=== PATIENT | female | born 1935 | race Caucasian/White ===

== ENCOUNTER 2016-07-09 06:25 | Emergency (ER) | payer MEDICARE ==
[2016-07-09 06:25] VITALS: BMI 28.3
[2016-07-09 06:37] VITALS: TEMP 98
--- NOTE | 2016-07-09 07:21 | EDPRACDOC ---
- General Information Chief Complaint: Blood Pressure (Problems) Stated Complaint: HYPERTENSION Time Seen by Provider: 07/09/16 07:04 Information Source: Patient, Family Mode Of Arrival: Car Home Medications: Home Medications Carvedilol [Coreg] 50 mg PO BID #60 tablet 11/22/14 CloNIDine (Antihypertensive) [Catapres] 0.1 mg PO TID 11/22/14 Hydralazine HCl 25 mg PO TID #90 tab 06/22/16 Omeprazole 40 mg PO DAILY 07/09/16 Allergies/Adverse Reactions: Allergies Allergy/AdvReac Type Severity Reaction Status Date / Time penicillamine [Penicillamine] Allergy Mild Rash-Genera Verified 07/09/16 06:37 lized orphenadrine citrate Allergy Unknown Verified 07/09/16 06:37 [From Norflex] Penicillins Allergy Rash-Genera Verified 07/09/16 06:37 lized - History of Present Illness Onset: 3-4 days HPI: BLOOD PRESSURE ELEVATED THE PAST FEW DAYS. C/O HEADACHE, NAUSEA FOR 2 WEEKS, SEEN IN ED FOR SAME. TOOK BP MEDS BEFORE COMING IN TODAY. DENIES CP, SOB. INTERMITTENT ABD PAIN. RECENT NORMAL BLOOD WORK. ADJUSTMENTS MADE TO MEDS BY PCP. ALSO HAS SEEN [facility]. NORMAL STRESS. ALL GOOD. ED Past Medical History - History Reviewed Yes Nurses notes reviewed and agree except as marked - Patient Medical History Neurological History: Reports: Cerebrovascular Accident Cardiac History: Reports: Hypertension, Hypercholesterolemia Psychological History: Denies: Depression - Social Medical History Smoking Status: Never smoker EDM Review of Systems - Review of Systems ROS Negative Except as Marked: Yes All systems reviewed and were negative except as marked Constitutional: No Symptoms Reported. negative: Chills Eyes: No Symptoms Reported. negative: Blurred Vision Nose: No Symptoms Reported Mouth: No Symptoms Reported Respiratory: No Symptoms Reported Cardiovascular: No Symptoms Reported Genitourinary: No Symptoms Reported Neurological: Headache Musculoskeletal: No Symptoms Reported Integumentary: No Symptoms Reported Allergic/Immunologic: No Symptoms Reported - Physical Exam Constitutional: Alert (Awake), No apparent distress Oriented to: Time, Person, Place Last recorded Vital Signs: Last Vital Signs Temp 98.0 F 07/09/16 06:34 Pulse 62 07/09/16 06:34 Resp 20 07/09/16 06:34 BP 144/63 07/09/16 06:34 Pulse Ox 95 07/09/16 06:34 Oxygen Pulse Oxygen Saturation 95 O2 Device Room Air Oxygen Flow Rate Fraction of Inspired Oxygen ( FIO2) - HEENT Head: Normal ( normocephalic) Eye Exam: Normal (PERRL, EOMI, Sclera white) Oropharynx: Normal (Pharynx:Moist without exudate,Gums-no swelling) Nose: No Symptoms Reported (septum midline) Neck: Normal (FROM, trachea at midline) - Respiratory/Cardiovascular Respiratory: Normal - CTA (BBS clear to auscultation without adventitious sounds ) Cardiovascular: Normal (RRR without murmur, gallop or rub) - GI Auscultation: Normal (NABS) Palpation: Normal (Soft,No rebound or guarding, non distended) Tenderness: Non tender Huertas's Sign: Negative - Musculoskeletal Back: Normal (Non-Tender) Extremities: Normal (Normal tone, Pulses 2+ No cyanosis or edema, FROM) - Integumentary Skin: Normal, Warm, Dry Lymphatics: Normal (no adenopathy) - Neurologic Memory Impaired: Normal Motor Function: Normal (Normal tone, Pulses 2+ No cyanosis or edema, FROM) Cranial Nerve: Normal (CN II-X11 intact sensation, strength 5/5) Cerebellar: Normal Mood Description: Normal Perception: Normal Decision Time to Discharge: 07:21 - Departure Yes I personally saw and evaluated the patient. Disposition: Home Condition: Stable Final Diagnosis: Chronic hypertension Instructions: Chronic Hypertension (ED) Education/Counseling Given To: Patient, Family Member Education/Counseling Given Regarding: Diagnosis Referrals: [Primary Care Provider] - Call for Appointment
[2016-07-09 07:44] VITALS: BP 145/75; PULSE 85
== END 2016-07-09 07:35 | disposition home or self-care (01) ==
LOC: ED 06:25
DX: I10 Essential (primary) hypertension (principal)
CPT/HCPCS: 99284

== ENCOUNTER 2016-07-30 19:28 | Observation (INO) | payer MEDICARE ==
[2016-07-30 20:47] LABS: AUTOMATED BASOPHIL 0.9 % (0-2); AUTOMATED EOSINOPHIL 2.4 % (0-5); AUTOMATED LYMPH 19.1 % (17-44); AUTOMATED MONOCYTE 7.7 % (3-10); AUTOMATED NEUTROPHIL 69.9 % (45-76); MPV 9.9 fL (7.4-10.4)
[2016-07-30] MEDS ORDERED: LABETALOL 20 MG/4 ML SYRINGE IV ONE (20:50)
--- NOTE | 2016-07-30 20:50 | DIRPT ---
CLINICAL DATA: Shortness of Breath EXAM: PORTABLE CHEST 1 VIEW COMPARISON: 01/13/2016 FINDINGS: Mild cardiomegaly. Lungs are clear. No effusions. No acute bony abnormality. IMPRESSION: Cardiomegaly. No active disease. Electronically Signed By: Ted Randle M.D. On: 07/30/2016 20:47
--- NOTE | 2016-07-30 20:53 | EDPRACDOC ---
- General Information Chief Complaint: Arrhythmia Stated Complaint: HEADACHE, NAUSEA, ABD PAIN ?HIGH BP Time Seen by Provider: 07/30/16 20:24 Information Source: Patient Mode of Arrival: Car Home Medications: Home Medications Carvedilol [Coreg] 50 mg PO BID #60 tablet 11/22/14 CloNIDine (Antihypertensive) [Catapres] 0.1 mg PO TID 11/22/14 Acetaminophen [Tylenol] 325 mg PO Q4-6H PRN 07/30/16 Hydralazine HCl 12.5 mg PO DAILY 07/30/16 Ranitidine HCl 150 mg PO BID 07/30/16 Allergies/Adverse Reactions: Allergies Allergy/AdvReac Type Severity Reaction Status Date / Time penicillamine [Penicillamine] Allergy Mild Rash-Genera Verified 07/30/16 20:08 lized orphenadrine citrate Allergy Unknown Verified 07/30/16 20:08 [From Norflex] Penicillins Allergy Rash-Genera Verified 07/30/16 20:08 lized - History of Present Illness Onset: 1914 HPI: PATIENT PRESENTS C/O EPIGASTRIC PAIN THAT HAS NOW MOVED MIDSTERNAL. NOT ASSOCIATED WITH EXERTION. B/P CONTINUES TO BE OUT OF CONTROL. MILD HEADACHE. FOLLOWS WITH DR. JIMENES. Chest Pain Location: Reports: Substernal Pain Radiation: Reports: None Symptoms Occur: Reports: Suddenly Cardiac Risk Factors: Reports: Family History, Hypertension Prehospital Care: Reports: None Pain Came On: Reports: Suddenly Pain Status: Present Now Pain Description: Reports: Pressure Pain Severity: Mild Pain Worsens With: Reports: Nothing Pain Improves With: Reports: Nothing Associated Signs and Symptoms: Reports: SOB ED Past Medical History - History Reviewed Yes Nurses notes reviewed and agree except as marked Travel Outside of [place] in the Last 3 Months?: No - Patient Medical History Neurological History: Reports: Cerebrovascular Accident Cardiac History: Reports: Hypertension, Hypercholesterolemia Psychological History: Denies: Depression Systemic History: Denies: Cancer Surgical History: Reports: Appendectomy - Social Medical History Smoking Status: Never smoker ETOH: None Substance Abuse: None Lives With: Family Lives In: Home EDM Review of Systems - Review of Systems ROS Negative Except as Marked: Yes All systems reviewed and were negative except as marked Constitutional: No Symptoms Reported. negative: Fever, Chills, Weakness, Fatigue, Loss of Appetite Eyes: No Symptoms Reported. negative: Redness, Blurred Vision, Double Vision, Discharge, Pain, Light Sensitive, Photophobia Ears: No Symptoms Reported. negative: Pain, Hearing Loss, Drainage, Ear Pulling Throat: No Symptoms Reported. negative: Pain, Swelling Nose: No Symptoms Reported. negative: Congestion, Bleeding, Discharge, Injection, Swelling, Deformity, Ecchymosis, Tender, Abrasion, Laceration Mouth: No Symptoms Reported. negative: Pain, Drooling Respiratory: No Symptoms Reported. negative: Cough, Brassy Cough, Barky Cough, Shortness of Breath, Wheezing, Hemoptysis Cardiovascular: Chest Pain. negative: Cyanosis, Edema, Orthopnea, Palpitations , PND, Syncope, Skin Mottling Gastrointestinal: No Symptoms Reported. negative: Pain, Constipation, Nausea, Vomiting, Diarrhea, Melena, Formula Intolerance Genitourinary: No Symptoms Reported. negative: Dysuria, Hematuria, Frequency, Discharge, Bleeding, Testicular Pain, Neurological: No Symptoms Reported. negative: Headache, Dizziness, Seizure, Numbness, Weakness, Speech Difficulty, Gait Difficulty Musculoskeletal: No Symptoms Reported. negative: Neck, Chestwall, Ribs, Back, Shoulder, Arm, Elbow, Forearm, Wrist, Hand, Pelvis, Hip, Femur, Knee, Leg, Ankle , Foot Integumentary: No Symptoms Reported. negative: Itching, Rash, Bruising, Wound Allergic/Immunologic: No Symptoms Reported. negative: Hives, Itching Hematologic: No Symptoms Reported. negative: Lymphadenopathy, Easy Bruising, Easy Bleeding Endocrine: No Symptoms Reported. negative: Weight Gain, Weight Loss Psychiatric: No Symptoms Reported. negative: Anxiety, Depression, Hallucinations, Insomnia, Suicidal - Physical Exam Constitutional: Alert (Awake), No apparent distress Oriented to: Time, Person, Place Last recorded Vital Signs: Last Vital Signs Temp 98.0 F 07/30/16 20:09 Pulse 60 07/30/16 20:31 Resp 20 07/30/16 20:31 BP 216/83 H 07/30/16 20:31 Pulse Ox 100 07/30/16 20:31 Oxygen Pulse Oxygen Saturation 100 O2 Device Oxygen Flow Rate Fraction of Inspired Oxygen ( FIO2) - HEENT Head: Normal ( normocephalic) Eye Exam: Normal (PERRL, EOMI, Sclera white) Oropharynx: Normal (Pharynx:Moist without exudate,Gums-no swelling) Tympanic Membrane: Normal ENT EAC: Normal TMJ: Normal Nose: No Symptoms Reported (septum midline) Neck: Normal (FROM, trachea at midline) - Respiratory/Cardiovascular Respiratory: Normal - CTA (BBS clear to auscultation without adventitious sounds ) Cardiovascular: Normal (RRR without murmur, gallop or rub) - GI Auscultation: Normal (NABS) Palpation: Normal (Soft,No rebound or guarding, non distended) Tenderness: Non tender Huertas's Sign: Negative - Musculoskeletal Back: Normal (Non-Tender) Extremities: Normal (Normal tone, Pulses 2+ No cyanosis or edema, FROM) - Integumentary Skin: Normal, Warm, Dry Lymphatics: Normal (no adenopathy) - Neurologic Memory Impaired: Normal Motor Function: Normal (Normal tone, Pulses 2+ No cyanosis or edema, FROM) Cranial Nerve: Normal (CN II-X11 intact sensation, strength 5/5) Cerebellar: Normal Mood Description: Normal Perception: Normal - Action ASA given in the ED: Yes - Results 07/30/16 20:40 07/30/16 20:40 WBC 6.9 xk/uL (3.8-10.8) 07/30/16 20:40 RBC 3.92 xM/uL (4.20-5.40) L 07/30/16 20:40 Hgb 11.9 g/dL (12.0-16.0) L 07/30/16 20:40 Hct 34.5 % (36-47) L 07/30/16 20:40 MCV 88 fL (81-99) 07/30/16 20:40 MCH 30.3 pg (27-32) 07/30/16 20:40 MCHC 34.3 g/dl (33-36) 07/30/16 20:40 RDW 13.0 % (11.5-14.5) 07/30/16 20:40 Plt Count 138 xk/uL (130-400) 07/30/16 20:40 MPV 9.9 fL (7.4-10.4) 07/30/16 20:40 Neut % (Auto) 69.9 % (45-76) 07/30/16 20:40 Lymph % (Auto) 19.1 % (17-44) 07/30/16 20:40 [place] % (Auto) 7.7 % (3-10) 07/30/16 20:40 Eos % (Auto) 2.4 % (0-5) 07/30/16 20:40 Baso % (Auto) 0.9 % (0-2) 07/30/16 20:40 Absolute Neuts (auto) 4.76 xk/uL (1.7-8.2) 07/30/16 20:40 Absolute Lymphs (auto) 1.31 xk/uL (0.65-4.75) 07/30/16 20:40 Lab Results 07/30/16 20:40 WBC 6.9 RBC 3.92 L Hgb 11.9 L Hct 34.5 L MCV 88 MCH 30.3 MCHC 34.3 RDW 13.0 Plt Count 138 MPV 9.9 Neut % (Auto) 69.9 Lymph % (Auto) 19.1 [place] % (Auto) 7.7 Eos % (Auto) 2.4 Baso % (Auto) 0.9 Absolute Neuts (auto) 4.76 Absolute Lymphs (auto) 1.31 Laboratory Results - last 24 hr 07/30/16 20:40 WBC 6.9 RBC 3.92 L Hgb 11.9 L Hct 34.5 L MCV 88 MCH 30.3 MCHC 34.3 RDW 13.0 Plt Count 138 MPV 9.9 Neut % (Auto) 69.9 Lymph % (Auto) 19.1 [place] % (Auto) 7.7 Eos % (Auto) 2.4 Baso % (Auto) 0.9 Absolute Neuts (auto) 4.76 Absolute Lymphs (auto) 1.31 Laboratory Results 07/30/16 20:40 - EKG EKG #1 EKG Time: 20:18 -: Yes EKG interpreted by me Rate: bpm: 59 Morven: LAD Rhythm: SB Block: IVCD Hypertrophy: LVH ST: Normal ED Critical Care Note - Critical Care Note Total Time (mins): 30 - Departure Yes I personally saw and evaluated the patient. Disposition: Admit IP To This Hospital Condition: Fair Final Diagnosis: Hypertensive emergency, Chest pain at rest Instructions: Chest Pain (ED), Chronic Hypertension (ED) Education/Counseling Given To: Patient Education/Counseling Given Regarding: Diagnosis, Treatment, Prognosis Referrals: None,No Provider [Primary Care Provider] - One Week Prescriptions: No Action CloNIDine (Antihypertensive) [Catapres] 0.1 mg PO TID Carvedilol [Coreg] 50 mg PO BID #60 tablet Ranitidine HCl 150 mg PO BID Hydralazine HCl 12.5 mg PO DAILY Acetaminophen [Tylenol] 325 mg PO Q4-6H PRN PRN Reason: Pain Decision to Admit Time: 21:27 Decision to admit date: 07/30/16 Decision to admit: from ED - Physician Consulted Hospitalist Time Called: 21:27 Provider Called: Gary Pires Time Mend Worker Returned Call: 21:28
[2016-07-30] MEDS ORDERED: ASPIRIN (CHEWABLE) 81 MG TAB PO ONE (20:54)
[2016-07-30 20:56] LABS: BLOOD UREA NITROGEN 17 MG/DL (7-17); CALCIUM 9.2 MG/DL (8.4-10.2); CALCULATED OSMOLALITY 253 MOs/Kg (270-290); CHLORIDE 93 mEq/L (98-107); GLUCOSE 105 MG/DL (70-99); SODIUM LEVEL 130 mEq/L (137-146)
[2016-07-30 21:00] LABS: PARTIAL THROMB. TIME 23.5 SEC (22-35); PT-INR 1.1
[2016-07-30] MEDS ORDERED: ENALAPRILAT 1.25 MG/ML VIAL IV ONE (21:29)
--- NOTE | 2016-07-30 23:38 | HISTPHYS ---
- Chief Complaint chest pain, high blood pressure - History of Present Illness [facility] HPI: The patient is an 81 yo woman who presents with acute worsening of her blood pressure and chest pain. She checked her blood pressure at home and it was 220 systolic. Onset: today. Duration: intermittent. Location: substernal. Radiation: to back. Character: Pressure. 01/10. Alleviated by: Nothing. Exacerbated by: Nothing. Associated Symptoms: Headache. Mild shortness of breath. No diaphoresis. Generalized weakness. Nausea. Epigastric abdominal pain but has mostly resolved. Palpitations. Treatments: none at home except usual medications. She reports she has had difficulty controlling her blood pressure and that she was scheduled to see Dr. oJy and have further evaluation of her heart. - Medical History Cardiac History: Reports: Hypertension, Hypercholesterolemia Respiratory History: Denies: Pulmonary Embolism (but has history of DVT) GI/ History: Reports: Gastroesophageal Reflux Neurological History: Reports: Cerebrovascular Accident - Surgical History Reports: Appendectomy, Hysterectomy - Medictions/Allergies Allergies penicillamine [Penicillamine] Allergy (Mild, Verified 07/30/16 20:08) Rash-Generalized orphenadrine citrate [From Norflex] Allergy (Verified 07/30/16 20:08) Unknown Penicillins Allergy (Verified 07/30/16 20:08) Rash-Generalized Current Medication List: Reviewed Home Medications Carvedilol [Coreg] 50 mg PO BID #60 tablet 11/22/14 CloNIDine (Antihypertensive) [Catapres] 0.1 mg PO TID 11/22/14 Acetaminophen [Tylenol] 325 mg PO Q4-6H PRN 07/30/16 Hydralazine HCl 12.5 mg PO DAILY 07/30/16 Ranitidine HCl 150 mg PO BID 07/30/16 - Family History Reports: Hypertension, Diabetes, Cancer - Social History Smoking Status: Former smoker (quit 2010) Social History: Denies: Alcohol Use, Substance Use Disorder - Review of Systems GENERAL: No Fever, chills, or diaphoresis. Positive for fatigue/malaise. HEENT: No ear pain or discharge. No nasal discharge or bleeding. No throat pain or swelling. No eye pain or eye redness. RESPIRATORY: No cough, wheezing, or shortness of breath. CARDIOVASCULAR: Chest pain and palpitations. GI: Epigastric abdominal pain that has mostly resolved. Nausea. No vomiting, diarrhea, constipation, or bloody stool. NEUROLOGICAL: Headache but no focal weakness. INTEGUMENT: no rashes, itching, or lesions. LYMPHATIC SYSTEM: no lymph node swelling or pain. MUSCULOSKELETAL: no new pain or joint swelling. GENITOURINARY: No dysuria or hematuria. ENDOCRINE: No polyuria or polydipsia. HEME: No chronic anemia, bleeding, or easy bruising. - Physical Exam Vital Signs: Initial Vitals Temperature 98.0 F 07/30/16 20:09 Pulse Rate 65 07/30/16 20:09 Respiratory Rate 20 07/30/16 20:09 Blood Pressure 177/74 07/30/16 20:09 Pulse Oxygen Saturation 97 07/30/16 20:09 Vital Signs - 24 hr 07/30/16 07/30/16 07/30/16 20:09 20:31 21:02 Temperature 98.0 F Pulse Rate 65 60 63 Respiratory 20 20 18 Rate Blood Pressure 177/74 216/83 H 197/81 H Pulse Oxygen 97 100 100 Saturation 07/30/16 07/30/16 07/30/16 21:34 21:37 21:55 Temperature Pulse Rate 55 L 54 L 55 L Respiratory 18 18 18 Rate Blood Pressure 177/77 177/77 157/71 Pulse Oxygen 97 97 97 Saturation 07/30/16 07/30/16 22:25 22:55 Temperature Pulse Rate 55 L 55 L Respiratory 18 18 Rate Blood Pressure 165/73 164/70 Pulse Oxygen 97 95 Saturation Weight: 65.7 kg Height: 5'2" BMI: 26.5 - Other Exam Other Exam Findings: GENERAL: Ill-appearing, well nourished, in acute distress. HEENT: Normocephalic, atraumatic; pupils equal and round. Nares patent, without discharge or bleeding. No oropharyngeal lesions or erythema. Mucous membranes are dry. NECK: is supple, no masses, trachea midline. RESPIRATORY: Clear to auscultation bilaterally. Chest wall movements are symmetric. No use of accessory muscles to breathe. No wheezing, rales, rhonchi. CARDIOVASCULAR: Normal S1, S2. Murmur 2/6 systolic. No rubs, or gallops. PMI non -displaced. Carotids: no carotid bruits. No bradycardia or tachycardia. DP pulses 2+ bilaterally. GI: soft, non-distended, normal active bowel sounds. No hepatosplenomegaly. Mild epigastric tenderness. INTEGUMENT: Clean, dry, and intact. No rashes. No lesions. MUSCULOSKELETAL: Moving all extremities. No cyanosis. No clubbing. Edema: trace lower extremity edema bilaterally. NEUROLOGICAL: Cranial nerves 2-12 grossly intact. Motor 4/5 throughout. Reflexes : 2+ bilaterally. Babinski: toes downgoing bilaterally. Intact Finger to nose. Sensory grossly intact to light touch. Intact rapid alternating movements bilaterally. No pronator drift. PSYCHIATRIC: Fully oriented. Normal and appropriate affect. LYMPHATIC: No cervical lymphadenopathy. No supraclavicular lymphadenopathy. - Lab Results Laboratory Results - last 24 hr 07/30/16 07/30/16 07/30/16 20:40 20:40 20:40 WBC 6.9 RBC 3.92 L Hgb 11.9 L Hct 34.5 L MCV 88 MCH 30.3 MCHC 34.3 RDW 13.0 Plt Count 138 MPV 9.9 Neut % (Auto) 69.9 Lymph % (Auto) 19.1 [place] % (Auto) 7.7 Eos % (Auto) 2.4 Baso % (Auto) 0.9 Absolute Neuts (auto) 4.76 Absolute Lymphs (auto) 1.31 PT 11.2 INR 1.1 APTT 23.5 Sodium 130 L Potassium 4.1 Chloride 93 L Carbon Dioxide 29 Anion Gap 12 BUN 17 Creatinine 0.80 Estimated GFR (MDRD) > 60 Glucose 105 H Calculated Osmolality 253 L Calcium 9.2 Corrected Calcium Total Bilirubin 0.6 AST 25 ALT 30 Alkaline Phosphatase 54 L Troponin I < 0.01 Total Protein 7.0 Albumin 4.1 Triglycerides Cholesterol LDL Cholesterol, Calc VLDL Cholesterol, Calc HDL Cholesterol Cholesterol/HDL Ratio Lipase TSH 07/30/16 07/30/16 07/30/16 20:40 23:27 23:27 WBC RBC Hgb Hct MCV MCH MCHC RDW Plt Count MPV Neut % (Auto) Lymph % (Auto) Wells % (Auto) Eos % (Auto) Baso % (Auto) Absolute Neuts (auto) Absolute Lymphs (auto) PT INR APTT Sodium Potassium Chloride Carbon Dioxide Anion Gap BUN Creatinine Estimated GFR (MDRD) Glucose Calculated Osmolality Calcium Corrected Calcium Total Bilirubin AST ALT Alkaline Phosphatase Troponin I < 0.01 Total Protein Albumin Triglycerides Cholesterol LDL Cholesterol, Calc VLDL Cholesterol, Calc HDL Cholesterol Cholesterol/HDL Ratio Lipase 300 TSH 1.75 - Diagnostic Findings EK bpm. Sinus bradycardia. Left axis deviation. Incomplete right bundle branch block. Nonspecific ST abnormality. ST depression in leads 3, AVF, and V6. ST elevation in lead V2 and 1. Reviewed EKG personally. Chest x-ray, viewed personally: EXAM: PORTABLE CHEST 1 VIEW COMPARISON: 01/13/2016 FINDINGS: Mild cardiomegaly. Lungs are clear. No effusions. No acute bony abnormality. IMPRESSION: Cardiomegaly. No active disease. - Assessment (1) Hypertensive emergency I16.1 - HYPERTENSIVE EMERGENCY Acute Present on Admission: Yes Patient has hypertension that is difficult to treat. Her blood pressure at home was much higher than usual and so she did come to the emergency department. Plan: Continue home medications but will need to add additional medications. May end up needing an IV gtt to control pressure. 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 (2) Chest pain R07.9 - CHEST PAIN, UNSPECIFIED Acute Present on Admission: Yes Qualifiers: Chest pain type: C Ischemic chest pain type: I Rule out myocardial infarction. Plan: Obtain cardiac enzymes x 3. Place patient on telemetry. Give patient oxygen, aspirin. Give nitroglycerin, and morphine as needed for chest pain. Give statin. Stress test has been ordered for the morning. Patient has been advised, if the stress test is negative, to follow up with the primary care provider for evaluation of other potential causes of the chest pain. (3) Acute electrocardiogram changes R94.31 - ABNORMAL ELECTROCARDIOGRAM [ECG] [EKG] Acute Present on Admission: Yes Noted. Plan: Continue cardiac workup. Cardiology consult. 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 Plan: Monitor. IV morphine prn. Control blood pressure. Case Care Discussed with: Patient, Family, Nursing Staff Total Time: 60 min
[2016-07-30] MEDS ORDERED: ATORVASTATIN 40 MG TAB PO ONE (23:40)
[2016-07-30] MEDS ORDERED: NITROGLYCERINE 0.4 MG TAB SL PRN (23:41)
[2016-07-30] MEDS ORDERED: MORPHINE 2 MG/ML INJECTION IV PRN (23:41)
[2016-07-30] MEDS ORDERED: Aluminum;Magnesium;Simethicone 30 ML UDC PO PRN (23:42)
[2016-07-30] MEDS ORDERED: ACETAMINOPHEN 325 MG SUPP PR PRN (23:42)
[2016-07-30] MEDS ORDERED: ONDANSETRON HCL 4 MG/2 ML VIAL IV PRN (23:42)
[2016-07-30] MEDS ORDERED: BENZONATATE 100 MG PERLES PO PRN (23:42)
[2016-07-30] MEDS ORDERED: PROMETHAZINE 25 MG/ML VIAL IV PRN (23:42)
[2016-07-30] MEDS ORDERED: SENNA CONCENTRATE TAB PO PRN (23:42)
[2016-07-30] MEDS ORDERED: ACETAMINOPHEN 325 MG/TAB TABLET PO PRN (23:42)
[2016-07-30] MEDS ORDERED: Docusate Sodium 100 MG CAP PO PRN (23:42)
[2016-07-30] MEDS ORDERED: GUAIFEN 100 MG-DEXTROMETH 10 MG PER 5 ML PO PRN (23:42)
[2016-07-30] MEDS ORDERED: BISACODYL 5 MG TAB PO PRN (23:42)
[2016-07-30] MEDS ORDERED: SIMETHICONE 80 MG TAB PO PRN (23:42)
[2016-07-30] MEDS ORDERED: TEMAZEPAM 15 MG CAP PO PRN (23:42)
[2016-07-30] MEDS ORDERED: Pharmacy Order Set Alert SCH (23:45)
[2016-07-30] MEDS ORDERED: RANITIDINE 150 MG TAB PO SCH ×2 (23:45)
[2016-07-30] MEDS ORDERED: ENOXAPARIN 40 MG/0.4 ML PFS SQ SCH (23:45)
[2016-07-31 00:37] VITALS: BMI 26.4
[2016-07-31] MEDS: CARVEDILOL 25 MG TABLET PO SCH ×2 (00:37→11:21)
[2016-07-31] MEDS ORDERED: Vaccine Screening Complete SCH (01:00)
[2016-07-31 03:33] LABS: MPV 11.4 fL (7.4-10.4)
[2016-07-31 03:43] LABS: BLOOD UREA NITROGEN 16 MG/DL (7-17); CALC CORRECTED 9.4 MG/DL (8.4-10.2); CALCIUM 8.9 MG/DL (8.4-10.2); CALCULATED OSMOLALITY 252 MOs/Kg (270-290); CHLORIDE 94 mEq/L (98-107); GLUCOSE 104 MG/DL (70-99); SODIUM LEVEL 130 mEq/L (137-146); TOTAL PROTEIN 5.9 G/DL (6.3-8.2)
[2016-07-31] MEDS ORDERED: REGADENOSON 0.4 MG/5 ML SYRINGE IV ONE (08:00)
[2016-07-31] MEDS ORDERED: ASPIRIN 325 MG TAB PO SCH (08:00)
[2016-07-31] MEDS ORDERED: SODIUM CHLORIDE 0.9% 10 ML FLUSH FLUSH ONE (08:00)
[2016-07-31] MEDS ORDERED: hydrALAZINE 25 MG TAB PO SCH (09:00)
[2016-07-31] MEDS ORDERED: SESTAMIBI 8 MCI V IV ONE (10:00)
--- NOTE | 2016-07-31 10:18 | CAPUEKG ---
[place], [place] Test Date: 2016-07-31 Pat Name: MEDARDO FELDER Department: Room: 444 Gender: Female National Van Owner Operator: : Requested By: Order Number: Reading MD: Larry Petersen MD Measurements Intervals [place] Rate: 58 P: 39 CA: 142 QRS: -26 QRSD: 100 T: -4 QT: 456 QTc: 447 Interpretive Statements Sinus bradycardia Moderate voltage criteria for LVH, may be normal variant Borderline ECG Electronically Signed On 07-31-16 10:18:26 EST by Larry Petersen MD [id number] [id number]
--- NOTE | 2016-07-31 11:12 | PCM.CARDCO ---
Consultation Date: 07/31/16 Requesting Physician: Gary Pires Credit Assessment Analyst: Larry Petersen Consult Reason: Chest Pain - History of Present Illness Patient is an 81 years old woman originally from [place] she presented to the hospital because of high blood pressure that she checked by measure her blood pressure as well as chest pain. She has difficulty specifically described her pain it look like it is located on the left side of chest not related to exertion can last up to couple hours. Taking deep breath coughing does not make any with situation worse. Her ability to exercise is fair. Denies having any dizziness or passing out. She has been having problem with high blood pressure for many years. Chief Complaint: chest pain, high blood pressure - Past Medical and Surgical History Cardiac History: Reports: Hypertension, Hypercholesterolemia Respiratory History: Denies: Pulmonary Embolism (but has history of DVT) GI/ History: Reports: Gastroesophageal Reflux Systemic History: Denies: Cancer, Anemia Psychological History: Denies: Depression, Alcoholism, Substance Use Disorder Neurological History: Reports: Cerebrovascular Accident Past Surgical History: Reports: Appendectomy, Hysterectomy Allergies penicillamine [Penicillamine] Allergy (Mild, Verified 07/30/16 20:08) Rash-Generalized orphenadrine citrate [From Norflex] Allergy (Verified 07/30/16 20:08) Unknown Penicillins Allergy (Verified 07/30/16 20:08) Rash-Generalized Home Medications Carvedilol [Coreg] 50 mg PO BID #60 tablet 11/22/14 CloNIDine (Antihypertensive) [Catapres] 0.1 mg PO TID 11/22/14 Acetaminophen [Tylenol] 325 mg PO Q4-6H PRN 07/30/16 Hydralazine HCl 12.5 mg PO DAILY 07/30/16 Ranitidine HCl 150 mg PO BID 07/30/16 - Social History Travel Outside of [place] in the Last 3 Months?: No Smoking Status: Former smoker (quit 2010) Social History: Denies: Alcohol Use, Substance Use Disorder - Family History Reports: Hypertension, Diabetes, Cancer. Denies: Stroke, Cardiac Disorders - Review of Systems Constitutional: No Symptoms Reported. negative: Fever, Chills, Weakness, Fatigue, Loss of Appetite - Physical Exam Constitutional: Alert (Awake), No apparent distress Oriented to: Time, Person, Place Exam: Last Vital Signs Temp 98 F 07/31/16 07:42 Pulse 55 L 07/31/16 08:00 Resp 18 07/31/16 07:42 BP 148/61 07/31/16 07:42 Pulse Ox 97 07/31/16 07:42 Intake & Output 07/30/16 07/31/16 07/31/16 23:59 07:59 15:59 Intake Total 340 Output Total 1000 Balance -660 Patient's weight 65.68 kg - HEENT Head: Normal ( normocephalic) Eye: Normal (PERRL, EOMI, Sclera white) Oropharynx: Normal (Pharynx:Moist without exudate,Gums-no swelling) Tympanic Membrane: Normal ENT EAC: Normal TMJ: Normal Nose: No Symptoms Reported (septum midline) - Respiratory/Cardiovascular Respiratory: Normal - CTA (BBS clear to auscultation without adventitious sounds ) - GI Auscultation: Normal (NABS) Palpation: Normal (Soft,No rebound or guarding, non distended) Tenderness: Non tender - Musculoskeletal Back: Normal (Non-Tender) Extremities: Normal (Normal tone, Pulses 2+ No cyanosis or edema, FROM) - Integumentary Skin: Normal, Warm, Dry Lymphatics: Normal (no adenopathy) - Neurologic Memory Impaired: Normal Cerebellar: Normal Mood Description: Normal Perception: Normal - Other Exam Other Exam Findings: Laboratory Tests 07/30/16 07/30/16 07/30/16 20:40 20:40 20:40 WBC 6.9 RBC 3.92 L Hgb 11.9 L Hct 34.5 L MCV 88 MCH 30.3 MCHC 34.3 RDW 13.0 Plt Count 138 MPV 9.9 Neut % (Auto) 69.9 Lymph % (Auto) 19.1 Tompkins % (Auto) 7.7 Eos % (Auto) 2.4 Baso % (Auto) 0.9 Absolute Neuts (auto) 4.76 Absolute Lymphs (auto) 1.31 PT 11.2 INR 1.1 APTT 23.5 Sodium 130 L Potassium 4.1 Chloride 93 L Carbon Dioxide 29 Anion Gap 12 BUN 17 Creatinine 0.80 Estimated GFR (MDRD) > 60 Glucose 105 H Calculated Osmolality 253 L Calcium 9.2 Corrected Calcium Total Bilirubin 0.6 AST 25 ALT 30 Alkaline Phosphatase 54 L Troponin I < 0.01 Total Protein 7.0 Albumin 4.1 Triglycerides Cholesterol LDL Cholesterol, Calc VLDL Cholesterol, Calc HDL Cholesterol Cholesterol/HDL Ratio Lipase TSH 07/30/16 07/30/16 07/30/16 20:40 23:27 23:27 WBC RBC Hgb Hct MCV MCH MCHC RDW Plt Count MPV Neut % (Auto) Lymph % (Auto) Tompkins % (Auto) Eos % (Auto) Baso % (Auto) Absolute Neuts (auto) Absolute Lymphs (auto) PT INR APTT Sodium Potassium Chloride Carbon Dioxide Anion Gap BUN Creatinine Estimated GFR (MDRD) Glucose Calculated Osmolality Calcium Corrected Calcium Total Bilirubin AST ALT Alkaline Phosphatase Troponin I < 0.01 Total Protein Albumin Triglycerides Cholesterol LDL Cholesterol, Calc VLDL Cholesterol, Calc HDL Cholesterol Cholesterol/HDL Ratio Lipase 300 TSH 1.75 07/31/16 07/31/16 07/31/16 02:30 02:30 02:30 WBC 5.3 RBC 3.63 L Hgb 11.0 L Hct 31.9 L MCV 88 MCH 30.4 MCHC 34.6 RDW 13.2 Plt Count 123 L MPV 11.4 H Neut % (Auto) Lymph % (Auto) Tompkins % (Auto) Eos % (Auto) Baso % (Auto) Absolute Neuts (auto) Absolute Lymphs (auto) PT INR APTT Sodium 130 L Potassium 3.6 Chloride 94 L Carbon Dioxide 28 Anion Gap 12 BUN 16 Creatinine 0.80 Estimated GFR (MDRD) > 60 Glucose 104 H Calculated Osmolality 252 L Calcium 8.9 Corrected Calcium 9.4 Total Bilirubin 0.5 AST 20 ALT 27 Alkaline Phosphatase 51 L Troponin I < 0.01 Total Protein 5.9 L Albumin 3.5 Triglycerides 125 Cholesterol 137 LDL Cholesterol, Calc 74.0 VLDL Cholesterol, Calc 25.0 HDL Cholesterol 38.0 L Cholesterol/HDL Ratio 3.6 Lipase TSH - Lab Results Laboratory Tests 07/30/16 07/30/16 07/30/16 20:40 20:40 20:40 WBC 6.9 RBC 3.92 L Hgb 11.9 L Hct 34.5 L MCV 88 MCH 30.3 MCHC 34.3 RDW 13.0 Plt Count 138 MPV 9.9 Neut % (Auto) 69.9 Lymph % (Auto) 19.1 Tompkins % (Auto) 7.7 Eos % (Auto) 2.4 Baso % (Auto) 0.9 Absolute Neuts (auto) 4.76 Absolute Lymphs (auto) 1.31 PT 11.2 INR 1.1 APTT 23.5 Sodium 130 L Potassium 4.1 Chloride 93 L Carbon Dioxide 29 Anion Gap 12 BUN 17 Creatinine 0.80 Estimated GFR (MDRD) > 60 Glucose 105 H Calculated Osmolality 253 L Calcium 9.2 Corrected Calcium Total Bilirubin 0.6 AST 25 ALT 30 Alkaline Phosphatase 54 L Troponin I < 0.01 Total Protein 7.0 Albumin 4.1 Triglycerides Cholesterol LDL Cholesterol, Calc VLDL Cholesterol, Calc HDL Cholesterol Cholesterol/HDL Ratio Lipase TSH 07/30/16 07/30/16 07/30/16 20:40 23:27 23:27 WBC RBC Hgb Hct MCV MCH MCHC RDW Plt Count MPV Neut % (Auto) Lymph % (Auto) Tompkins % (Auto) Eos % (Auto) Baso % (Auto) Absolute Neuts (auto) Absolute Lymphs (auto) PT INR APTT Sodium Potassium Chloride Carbon Dioxide Anion Gap BUN Creatinine Estimated GFR (MDRD) Glucose Calculated Osmolality Calcium Corrected Calcium Total Bilirubin AST ALT Alkaline Phosphatase Troponin I < 0.01 Total Protein Albumin Triglycerides Cholesterol LDL Cholesterol, Calc VLDL Cholesterol, Calc HDL Cholesterol Cholesterol/HDL Ratio Lipase 300 TSH 1.75 07/31/16 07/31/16 07/31/16 02:30 02:30 02:30 WBC 5.3 RBC 3.63 L Hgb 11.0 L Hct 31.9 L MCV 88 MCH 30.4 MCHC 34.6 RDW 13.2 Plt Count 123 L MPV 11.4 H Neut % (Auto) Lymph % (Auto) Tompkins % (Auto) Eos % (Auto) Baso % (Auto) Absolute Neuts (auto) Absolute Lymphs (auto) PT INR APTT Sodium 130 L Potassium 3.6 Chloride 94 L Carbon Dioxide 28 Anion Gap 12 BUN 16 Creatinine 0.80 Estimated GFR (MDRD) > 60 Glucose 104 H Calculated Osmolality 252 L Calcium 8.9 Corrected Calcium 9.4 Total Bilirubin 0.5 AST 20 ALT 27 Alkaline Phosphatase 51 L Troponin I < 0.01 Total Protein 5.9 L Albumin 3.5 Triglycerides 125 Cholesterol 137 LDL Cholesterol, Calc 74.0 VLDL Cholesterol, Calc 25.0 HDL Cholesterol 38.0 L Cholesterol/HDL Ratio 3.6 Lipase TSH - Assessment/Plan (1) Chest pain R07.9 - CHEST PAIN, UNSPECIFIED Acute Present on Admission: Yes C I Comment: So far biochemical markers are normal. She is scheduled to have a stress test today will wait for results of those tests. (2) Essential hypertension I10 - ESSENTIAL (PRIMARY) HYPERTENSION Acute Comment: Will cut down her carvedilol. Will add ARB to control blood pressure better. (3) Dyslipidemia E78.5 - HYPERLIPIDEMIA, UNSPECIFIED Acute Comment: She is on atorvastatin her cholesterol is at target. Will continue present management.
--- NOTE | 2016-07-31 11:29 | CAPUECHO ---
INDICATION: CHEST PAIN / HYPERTENSION HEIGHT: 157.5 cm (5 ft 2.0 in) WEIGHT: 65.3 kg (144.0 lbs) BP: 130/54 BSA: 1.52842 m MEASUREMENTS 2D RVIDd: 2.7 cm IVSd: 1.2 cm LVIDd: 3.9 cm LVPWd: 1.2 cm LVIDs: 2.8 cm EF(Teich): 54.25 % LA Diam: 4.7 cm EF Biplane: 59.13 % LAESV MOD A4C: 74.9 ml LAESV MOD A2C: 81.6* ml LAESV Index (A-L): 50.77 ml/m DOPPLER MV E Jose: 0.84 m/s MV A Jose: 1.04 m/s MV PHT: 63.58 ms MVA By PHT: 3.46 cm AV Vmax: 1.37 m/s TR Vmax: 2.67 m/s TR maxP mmHg RVSP: 38.48 mmHg FINDINGS ------- Procedure:2D images, m-mode, color and spectral Doppler were obtained and reviewed. ECG rhythm:Sinus rhythm. Study quality:This was a technically adequate study. Left Ventricle:The left ventricular size is normal. There is mild concentric left ventricular hype rtrophy. Overall left ventricular systolic function is normal with, an EF between 60 - 65 %. The diastolic filling pattern indicates impaired relaxation. Right Ventricle:The right ventricle is normal in size and function. Left Atrium:The left atrium is normal in size. The left atrium is moderately dilated. Right Atrium:The right atrium is normal in size and function. Aortic Valve:The aortic valve is trileaflet and appears structurally normal. There is mild aortic valve sclerosis. There is mild aortic regurgitation. Mitral Valve:Normal appearing mitral valve. Mild mitral regurgitation is present. Tricuspid Valve:The tricuspid valve appears structurally normal. Mild tricuspid regurgitation pres ent. The right ventricular systolic pressure, as measured by Doppler, is 38 mmhg. Pulmonic Valve:The pulmonic valve is normal. Trace/mild (physiologic) pulmonic regurgitation. Aorta:The aortic root, ascending aorta and aortic arch appear normal. IVC:Normal inferior vena cava with normal inspiratory collapse. Pericardium:There is no pericardial effusion. CONCLUSIONS 1. Overall left ventricular systolic function is normal with, an EF between 60 - 65 %. 2. The diastolic filling pattern indicates impaired relaxation. 3. The left atrium is moderately dilated. 4. There is mild aortic regurgitation. 5. Mild mitral regurgitation is present. 6. Mild tricuspid regurgitation present. 7. The right ventricular systolic pressure, as measured by Doppler, is 38 mmhg. Electronically Signed By: Larry Petersen MD -- Electronically Signed On: 11:29:27
[2016-07-31] MEDS ORDERED: LOSARTAN POTASSIUM 25 MG TAB PO SCH (12:00)
--- NOTE | 2016-07-31 12:43 | PCM.STRESS ---
Nuclear stress test (Lexiscan): Indication for procedure: Chest pain. Patient was brought to the stress test room in a fasting state. IV was already inserted. The patient got connected to the monitoring engineer. Blood pressure was monitored as well as pulse oximetry. Lexiscan was given during in usual fashion. That was followed by injection of radioisotope. Then patient was monitored for about 5 min. Resting heart rate was 52 beats/ min. Resting blood pressure was 144/72 mm of mercury. Resting EKG showed normal sinus rhythm, normal P interval, left ventricle hypertrophy, ST segment changes secondary to LVH. EKG during the infusion of Lexiscan and shortly after showed no diagnostic ST-T segment changes. Symptoms noted during the infusion and after include shoulder and back as well as hip pain.. Nuclear assessment: Resting imaging showed minimal defect involving apical portion of the anterior wall. Stress imaging showed minimal defect involving apical portion of the anterior wall. Gated imaging revealed normal contractility in all segments. The ejection fraction was 64%. Conclusions: 1. No ischemia seen on this scan. 2. Normal gated images. 3. Normal ejection fraction calculated to be of 63%. Fixed defect involving apical portion of the anterior wall is probably related to breast attenuation..
[2016-07-31 13:07] VITALS: BP 180/88; PULSE 60; TEMP 97.9
--- NOTE | 2016-07-31 13:27 | PCM.DCS92 ---
- Final/Secondary Discharge Diagnosis (1) Chest pain Acute R07.9 - CHEST PAIN, UNSPECIFIED Present on Admission: Yes other chest pain I R07.89 - Other chest pain; R07.8 - Other chest pain Comment: Stress test negative for ischemia. Control BP, follow up with pcp (2) Essential hypertension Acute I10 - ESSENTIAL (PRIMARY) HYPERTENSION Present on Admission: Yes Comment: Blood pressures have been an issue. Has been taking hydralazine p.r.n. with high-dose Coreg and clonidine. Coreg dose decreased due to bradycardia. Can continue clonidine for now but watch for persistent bradycardia with this combination. To avoid rebound hypertension likely would need to discontinue Coreg before clonidine. Adding Benicar HCT for better and more consistent blood pressure control (3) Dyslipidemia Acute E78.5 - HYPERLIPIDEMIA, UNSPECIFIED (4) Headache Acute R51 - HEADACHE Present on Admission: Yes H H I Comment: Likely related to medications and uncontrolled blood pressure Discharge Disposition: Discharge w/ Home Health Discharge Condition: Improved Cognitive Discharge Status: Unimpaired Fuctional Discharge Status: Independent Physician Follow up/Referrals: None,No Provider [Family Provider] - One Week Ole Joy MD [Staff Physician] - 3-4 Days Home Medications / New Prescriptions: New Carvedilol [Coreg] 12.5 mg PO BID #60 tab Olmesartan/Hydrochlorothiazide [Benicar Hct 20-12.5 mg Tablet] 1 tab PO DAILY #30 tablet Continue CloNIDine (Antihypertensive) [Catapres] 0.1 mg PO TID Ranitidine HCl 150 mg PO BID Acetaminophen [Tylenol] 325 mg PO Q4-6H PRN PRN Reason: Pain Discontinued Carvedilol [Coreg] 50 mg PO BID #60 tablet Hydralazine HCl 12.5 mg PO DAILY O2 Device: Room Air Diet at Discharge: As Tolerated, Heart Healthy Activity: As Tolerated - DC Summary Notes Hospital Course Note:: Discharge summary on patient named MEDARDO FELDER admitted to [facility] on 07/30/16 by Gary Pires MD. Date of discharge is []. Ms. Felder is an 81-year-old female who presented to the emergency room with complaint of headache and chest pain. She was found to be significantly hypertensive with blood pressures over 200 systolic. Apparently she has had problems with her blood pressure control at home. Family states that her blood pressures would be stable for months and then start elevating and being out of control for several days. Given her symptoms she was admitted to the hospital. Serial cardiac enzymes were negative and she underwent nuclear stress testing. This was negative for any evidence of ischemia. She also underwent a 2D echo. This showed a preserved EF of 60-65%, Minimal LVH and normal LV function. Had long discussion with family about the best way to manage blood pressure. I am concerned about the combination of beta-toña and clonidine leading to bradycardia. She has had occasional heart rate in the upper 40s. There is also some concern about discontinuing clonidine in the presence of beta-toña usage and recommendations generally are to discontinue beta-toña 1st. Due to this will go ahead and decrease her Coreg down from 50 mg twice daily to 12.5 mg twice daily. We will continue the clonidine for now. I am also adding Benicar HCT to her regimen to provide smoother long-term control. Ideally would like to get her off clonidine long-term and simplify her regimen as much as possible. Currently blood pressures have been stable since admission. With her negative stress test and essentially normal 2D echo she is stable for discharge home. Total Time: 45 minutes - Physical Exam Vital Signs: Last Vital Signs Temp 97.9 F 07/31/16 13:03 Pulse 60 07/31/16 13:03 Resp 18 07/31/16 13:03 BP 180/88 H 07/31/16 13:03 Pulse Ox 98 07/31/16 13:03 Oxygen Pulse Oxygen Saturation 98 O2 Device Room Air Oxygen Flow Rate Fraction of Inspired Oxygen ( FIO2) Constitutional: No apparent distress, Alert (Awake), Well nourished, Well appearing Oriented to: Time, Person, Place - HEENT Head: Normal ( normocephalic) Eye: Normal (PERRL, EOMI, Sclera white) Oropharynx: Normal (Pharynx:Moist without exudate,Gums-no swelling) Tympanic Membrane: Normal ENT EAC: Normal TMJ: Normal Nose: No Symptoms Reported (septum midline) - Respiratory/Cardiovascular Respiratory: Normal - CTA (BBS clear to auscultation without adventitious sounds ) Cardiovascular: Normal - GI Auscultation: Normal (NABS) Palpation: Normal (Soft,No rebound or guarding, non distended) Tenderness: Non tender - Musculoskeletal Back: Normal (Non-Tender) Extremities: Normal (Normal tone, Pulses 2+ No cyanosis or edema, FROM) - Integumentary Skin: Normal, Warm, Dry Lymphatics: Normal (no adenopathy) - Neurologic Memory Impaired: Normal Cerebellar: Normal Mood Description: Normal Perception: Normal
[2016-07-31] MEDS ORDERED: ATORVASTATIN 40 MG TAB PO SCH (21:00)
[2016-07-31] MEDS ORDERED: CARVEDILOL 25 MG TABLET PO SCH (21:00)
== END 2016-07-31 14:30 | disposition home health service (06) ==
LOC: ED 19:28 → PCU 23:25 → INTOOBSV 23:25 → PCU 23:37
PROVIDERS: ADMIT Internal Medicine; ATTEND Hospitalist
DX: R07.89 Other chest pain (principal); R51 Headache; I16.1 Hypertensive emergency; R94.31 Abnormal electrocardiogram [ECG] [EKG]; R00.1 Bradycardia, unspecified; E78.5 Hyperlipidemia, unspecified; Z87.891 Personal history of nicotine dependence; K21.9 Gastro-esophageal reflux disease without esophagitis; Z86.73 Personal history of transient ischemic attack (TIA), and cerebral infarction without residual deficits; Z79.899 Other long term (current) drug therapy; R06.02 Shortness of breath
CPT/HCPCS: 36415; 71010; 78452; 80053; 80061; 83690; 84443; 84484; 85025; 85027; 85610; 85730; 93005; 93017; 96372; 96374; 96375; 99284; A4216; A9270; A9500; C8929; G0378; J1650; J2785; J3490; 93306